=== PATIENT | female | born 1995 | race American Indian/Alaskan Native ===

== ENCOUNTER 2016-10-26 17:47 | Emergency (ER) | payer SELFPAY ==
[2016-10-26 18:16] VITALS: BP 124/82
--- NOTE | 2016-10-26 19:48 | XRay Report ---
FINAL REPORT PROCEDURE: XR SHOULDER 2 LT TECHNIQUE: Left shoulder, three views HISTORY: left shoulder pain COMPARISON: No prior studies are available for comparison. FINDINGS: No acute fracture or dislocation is seen. No focal osseous lesions are seen. No degenerative change. IMPRESSION: No acute osseous abnormality is identified
--- NOTE | 2016-10-26 20:06 | Emergency Department Report ---
Upper Extremity - HPI Chief Complaint: Shoulder Injury Stated Complaint: UNABLE TO MOVE LT ARM/PAINFUL Time Seen by Provider: 10/26/16 19:41 Upper Extremity: Left Shoulder Occurred When: 5 Days Mechanism: Unsure Severity: severe Symptoms: Yes Pain with Movement, Yes Limited Range of Movement, No Deformity, No Numbness, No Bruising/Ecchymosis, No Laceration or Abrasion Other History: Patient comes in the ER today with complaints of left shoulder pain for the past 5 days. Patient denies any injury. Patient states that the pain started last Monday evening and has like a grinding popping sensation. She has been trying to work range of motion on joint to loosen it up but believes it continues to get worse. Patient has been taking [id number] medications without any relief. Patient denies any cough, chest pain, fevers, numbness, tingling. Patient further notes that even turning her head to the right and left does worsen the pain in her left shoulder. ED Review of Systems ROS: Stated complaint: UNABLE TO MOVE LT ARM/PAINFUL Other details as noted in HPI Constitutional: denies: chills, fever Eyes: denies: eye pain, eye discharge, vision change ENT: denies: ear pain, throat pain Respiratory: denies: cough, shortness of breath, wheezing Cardiovascular: denies: chest pain, palpitations Endocrine: no symptoms reported Gastrointestinal: denies: abdominal pain, nausea, diarrhea Genitourinary: denies: urgency, dysuria, discharge Musculoskeletal: arthralgia, myalgia. denies: back pain, joint swelling Skin: denies: rash, lesions Neurological: denies: headache, weakness, paresthesias Psychiatric: denies: anxiety, depression Hematological/Lymphatic: denies: easy bleeding, easy bruising ED Past Medical Hx - Past Medical History Previous Medical History?: No - Surgical History Past Surgical History?: Yes Additional Surgical History: Jose foot surgery for removal of bunions - Social History Smoking Status: Current Every Day Smoker Substance Use Type: Non Opiate Pain - Medications Home Medications: Home Medications Medication Instructions Recorded Confirmed Last Taken Type Cyclobenzaprine HCl [Flexeril 5 MG 5 mg PO TID PRN #20 tab 10/26/16 Unknown Rx TAB] predniSONE [Deltasone] 40 mg PO QDAY 5 Days 10/26/16 Unknown Rx traMADol [Ultram 50 MG tab] 50 mg PO Q6HR PRN #20 tablet 10/26/16 Unknown Rx Upper Extremity Exam - Exam General: Vital signs noted. No distress. Alert and acting appropriately. Head and Torso: Yes Neck Tenderness (left lateral trapezius, levator muscle tenderness), Yes Back Tenderness (left superior parascapular muscle tenderness) , No HEENT Abnormality, No Chest/Lungs Abnormality, No Abdominal Tenderness Shoulder Exam: Yes Shoulder Tenderness (tenderness noted to left supraspinatus muscle), Yes AC Joint Tenderness, No Clavicle Tenderness, No Normal Range of Motion in Shoulder (Limited range of motion of left shoulder with abduction, internal rotation), No Shoulder Deformity Arm Exam: No Arm/Humerus Tenderness, No Arm Deformity Elbow: No Elbow Tenderness, No Normal Range of Motion in Elbow, No Elbow Deformity Forearm: No Forearm Tenderness, No Forearm Deformity, No Pain with Pronation, No Pain with Supination Wrist: Yes Normal ROM in Wrist, No Wrist Tenderness, No Wrist Deformity, No Snuffbox Tenderness, No Pain with Axial Thumb Compression Hand: Yes Normal ROM in Digit(s), No Hand Tenderness, No Hand Deformity, No Digit Tenderness, No Digit(s) Deformity, No Tendon Dysfunction CMS Exam: Yes Normal Distal Pulses, Yes Normal Capillary Refill, Yes Normal Distal Sensation, No Broken Skin ED Course Vital Signs 10/26/16 18:12 Temperature 98.8 F Pulse Rate 81 Respiratory 20 Rate Blood Pressure 124/82 O2 Sat by Pulse 100 Oximetry ED Medical Decision Making - Radiology Data Radiology results: report reviewed Normal left shoulder x-ray - Medical Decision Making Patient is nontoxic and hemodynamically stable. Physical exam is consistent with muscular etiology to her symptoms. Patient does have some crepitus with range of motion of left shoulder. I will place patient in sling here in the ER as well as start her on a course of anti-inflammatories, muscle relaxants and mild pain medications for symptomatic relief. I will refer patient orthopedic for further evaluation if symptoms fail to resolve or worsen. Patient is in agreement treatment plan the patient is stable for discharge. Critical care attestation.: If time is entered above; I have spent that time in minutes in the direct care of this critically ill patient, excluding procedure time. ED Disposition Clinical Impression: Left shoulder pain, Left shoulder strain Disposition: TO HOME OR SELFCARE Is pt being admited?: No Does the pt Need Aspirin: No Condition: Good Instructions: Rotator Cuff Injury (ED), Muscle Strain (ED) Prescriptions: Cyclobenzaprine HCl [Flexeril 5 MG TAB] 5 mg PO TID PRN #20 tab PRN Reason: Muscle Spasm predniSONE [Deltasone] 40 mg PO QDAY 5 Days traMADol [Ultram 50 MG tab] 50 mg PO Q6HR PRN #20 tablet PRN Reason: Pain Referrals: PRIMARY MD SUKHDEEP [Primary Care Provider] - 3-5 Days DANIEL YOUNG MD [Staff Physician] - 3-5 Days Forms: Work/School Release Form(ED) Time of Disposition: 20:09
== END 2016-10-26 20:17 | disposition home or self-care (01) ==
LOC: ED 17:47
DX: S46.812A Strain of other muscles, fascia and tendons at shoulder and upper arm level, left arm, initial encounter (principal); F17.200 Nicotine dependence, unspecified, uncomplicated; X58.XXXA Exposure to other specified factors, initial encounter; Y93.89 Activity, other specified; Y92.89 Other specified places as the place of occurrence of the external cause; Y99.8 Other external cause status
CPT/HCPCS: 99284

== ENCOUNTER 2016-12-18 21:17 | Emergency (ER) | payer SELFPAY ==
[2016-12-18] MEDS ORDERED: PROVENTIL IH ONE ×3 (21:20→23:33)
[2016-12-18] MEDS ORDERED: MAGNESIUM SULFATE 1 GM in NACL 0.9% 50 ML IV ONE (23:32)
[2016-12-18] MEDS ORDERED: MAGNESIUM SULFATE 2GM/50ML 2 GM/50 ML BAG IV ONE (23:33)
--- NOTE | 2016-12-18 23:43 | Emergency Department Report ---
HPI - General Chief Complaint: Adult Asthma Time Seen by Provider: 12/18/16 23:32 - HPI HPI: 21-year-old female brought to ED with shortness of breath, wheezing, chest pain. Symptoms started 2 days ago progressively worsened today. Patient has been using her Combivent inhaler without relief. patient frequent ER visits for asthma exacerbation. ED Past Medical Hx - Past Medical History Previous Medical History?: Yes Hx Asthma: Yes - Surgical History Past Surgical History?: Yes Additional Surgical History: Jose foot surgery for removal of bunions - Family History Family history: hypertension - Social History Smoking Status: Never Smoker - Medications Home Medications: Home Medications Medication Instructions Recorded Confirmed Last Taken Type Cyclobenzaprine HCl [Flexeril 5 MG 5 mg PO TID PRN #20 tab 10/26/16 Unknown Rx TAB] predniSONE [Deltasone] 40 mg PO QDAY 5 Days 10/26/16 Unknown Rx traMADol [Ultram 50 MG tab] 50 mg PO Q6HR PRN #20 tablet 10/26/16 Unknown Rx Azithromycin [Zithromax TAB] 250 mg PO QDAY #6 tablet 12/19/16 Unknown Rx methylPREDNISolone [Medrol] 4 mg PO QAM #1 tab.ds.pk 12/19/16 Unknown Rx ED Review of Systems ROS: Stated complaint: ROSY Other details as noted in HPI Comment: All other systems reviewed and negative Respiratory: no symptoms reported, wheezing Cardiovascular: as per HPI Physical Exam - Physical Exam Vital Signs: Vital Signs 12/18/16 21:27 Temperature 98.6 F Pulse Rate 98 H Respiratory 24 Rate Blood Pressure 122/83 O2 Sat by Pulse 100 Oximetry Physical Exam: - General Limitations: No Limitations General appearance: alert, in no apparent distress - Head Head exam: Present: atraumatic, normocephalic - Eye Eye exam: Present: normal appearance, EOMI. Absent: nystagmus - ENT ENT exam: Present: normal exam, normal orophraynx, mucous membranes moist, normal external ear exam - Neck Neck exam: Present: normal inspection, full ROM. Absent: tenderness, meningismus - Respiratory Respiratory exam: Present: exp wheezing- Cardiovascular Cardiovascular Exam: Present: regular rate, normal rhythm, normal heart sounds. Absent: bradycardia, tachycardia, irregular rhythm, systolic murmur, diastolic murmur, rubs, gallop - GI/Abdominal GI/Abdominal exam: Present: soft, normal bowel sounds. Absent: distended, tenderness, guarding, rebound, rigid, pulsatile mass - Rectal Rectal exam: Present: deferred - Extremities Exam Extremities exam: Present: - Back Exam Back exam: Present: normal inspection, full ROM. Absent: tenderness, CVA tenderness (R), CVA tenderness (L), muscle spasm, paraspinal tenderness, vertebral tenderness - Neurological Exam Neurological exam: Present: alert, oriented X3, normal gait, other (Extraocular movements intact. Tongue midline. No facial droop. Facial sensation intact to light touch in the V1, V2, V3 distribution bilaterally. 5 and 5 strength in 4 extremities.. Sensation is intact to light touch in 4 extremities.). Absent : motor sensory deficit - Psychiatric Psychiatric exam: Present: Normal affect - Skin Skin exam: Present: warm, dry, intact, normal color. Absent: rash ED Course Vital Signs 12/18/16 21:27 Temperature 98.6 F Pulse Rate 98 H Respiratory 24 Rate Blood Pressure 122/83 O2 Sat by Pulse 100 Oximetry Critical care attestation.: If time is entered above; I have spent that time in minutes in the direct care of this critically ill patient, excluding procedure time. ED Disposition Clinical Impression: Asthma exacerbation Acute bronchitis Qualifiers: Bronchitis organism: Mycoplasma pneumoniae Qualified Code(s): J20.0 - Acute bronchitis due to Mycoplasma pneumoniae Disposition: TO HOME OR SELFCARE Is pt being admited?: No Does the pt Need Aspirin: No Condition: Stable Instructions: Acute Bronchitis (ED) Prescriptions: Azithromycin [Zithromax TAB] 250 mg PO QDAY #6 tablet methylPREDNISolone [Medrol] 4 mg PO QAM #1 tab.alyssa Referrals: PRIMARY CARE, [Primary Care Provider] - 3-5 Days
[2016-12-18] MEDS ORDERED: XOPENEX IH ONE (23:51)
[2016-12-19 03:15] VITALS: BP 95/59
--- NOTE | 2016-12-19 07:25 | XRay Report ---
AP CHEST: HISTORY: Shortness of breath AP view of the chest demonstrates a normal mediastinal and cardiac contour with clear lungs and normal bony and soft tissue structures. IMPRESSION: Unremarkable AP chest.
== END 2016-12-19 03:12 | disposition home or self-care (01) ==
LOC: ED 21:17
DX: J45.901 Unspecified asthma with (acute) exacerbation (principal); J20.9 Acute bronchitis, unspecified
CPT/HCPCS: 71010; 94640; 96365; 96375; 99284; J2930; J3475

== ENCOUNTER 2017-03-28 17:25 | Emergency (ER) | payer SELFPAY ==
[2017-03-28 17:38] VITALS: BP 125/68
[2017-03-28] MEDS ORDERED: DUONEB *Not for PRN Use IH ONE (18:25)
== END 2017-03-29 02:25 | disposition left against medical advice (07) ==
LOC: ED 17:25
DX: R06.02 Shortness of breath (principal); Z53.21 Procedure and treatment not carried out due to patient leaving prior to being seen by health care provider
CPT/HCPCS: 94640